=== PATIENT | male | born 1995 | race Two or more races ===

== ENCOUNTER 2019-01-11 23:28 | Inpatient (IN) | payer MEDICAID, OTHER ==
[~2019-01-11] VITALS: Ht 165.1 cm; Wt 166.9 kg
--- NOTE | 2019-01-11 23:46 | NUR ---
ED Nurse Note: Patient BIBA, post ictal, unresponsive, eyes open, body twitching, breathing labored, O2 saturation at 65%. Patient placed on nonrebreather immediately upon arrival 15L, 100%. Patient O2 saturation responded alternating between 88-90, dropping as low as 83%. ERMd informed.
[2019-01-12] VITALS (8 sets, daily range): BP systolic 106–169; BP diastolic 52–110
[2019-01-12] MEDS ORDERED: levETIRAcetam 1,000mg/NS100ml 100 ML IVPB ONE
[2019-01-12] MEDS ORDERED: LORazepam Inj 2mg/ml 1ml IM ONE
[2019-01-12] MEDS ORDERED: LORazepam Inj 2mg/ml 1ml IV ONE ×2 (00:15→01:30)
[2019-01-12 00:19] LABS: BASOPHILS % (AUTO) 1.1 % (0.0-2.0); EOSINOPHILS % (AUTO) 1.2 % (0.0-3.0); HEMATOCRIT 48.2 % (42.0-52.0); HEMOGLOBIN 15.2 G/DL (14.2-18.0); LYMPHOCYTES % (AUTO) 29.8 % (20.0-45.0); MEAN CORPUSCULAR VOLUME 94 FL (80-99); MONOCYTES % (AUTO) 8.6 % (1.0-10.0); NEUTROPHILS % (AUTO) 59.3 % (45.0-75.0); PLATELET COUNT 187 K/UL (150-450); RED BLOOD COUNT 5.11 M/UL (4.70-6.10); RED CELL DISTRIBUTION WIDTH 12.6 % (11.6-14.8); WHITE BLOOD COUNT 10.4 K/UL (4.8-10.8)
--- NOTE | 2019-01-12 00:30 | NUR ---
ED Nurse Note: Patient being placed on BiPAP. Settings: 04/07 100%.
[2019-01-12 00:41] LABS: ANION GAP 5 mmol/L (5-15); BLOOD UREA NITROGEN 14 mg/dL (7-18); CALCIUM 8.7 MG/DL (8.5-10.1); CARBON DIOXIDE 29 MMOL/L (21-32); CHLORIDE 110 MMOL/L (98-107); CREATININE 0.8 MG/DL (0.55-1.30); POTASSIUM 4.5 MMOL/L (3.5-5.1); SODIUM 144 MMOL/L (136-145)
--- NOTE | 2019-01-12 00:47 | Emergency Room Report ---
History of Present Illness General Chief Complaint: Seizure Source: Medical Record, EMS Present Illness HPI Patient presents with seizure. He has a history of seizure disorder for which he takes Keppra. Also question of pseudoseizure. He called 911 because of seizure activity. He lives by himself. EMS did not give any medication. On arrival he was confused and was twitching on the left side. No trauma. No obvious oral trauma. He was also grunting. He was in and out in these episodes. Allergies: Coded Allergies: No Known Allergies (Unverified , 01/11/19) Patient History Past Medical History: see triage record, old chart reviewed, seizures Past Surgical History: other Pertinent Family History: none Social History: Denies: smoking Immunizations: other Reviewed Nursing Documentation: PMH: Agreed; PSxH: Agreed Nursing Documentation-PMH Hx Seizures: Yes Review of Systems Eye: Denies: eye pain, blurred vision ENT: Denies: ear pain, nose congestion, throat swelling Respiratory: Denies: cough, shortness of breath Cardiovascular: Denies: chest pain, palpitations Gastrointestinal: Denies: abdominal pain, diarrhea, nausea, vomiting Musculoskeletal: Denies: back pain, joint pain Skin: Denies: rash Neurological: Denies: headache, numbness Endocrine: Denies: increased thirst, increased urine Hematologic/Lymphatic: Denies: easy bruising All Other Systems: negative except mentioned in HPI Physical Exam Vital Signs Date Time Temp Pulse Resp B/P (MAP) Pulse Ox O2 Delivery O2 Flow Rate FiO2 01/11/19 23:39 98.4 110 16 150/110 (123) 96 Room Air 01/12/19 00:45 100 Vitals with high blood pressure and tachycardia Sp02 EP Interpretation: reviewed, normal General Appearance: well appearing, no apparent distress, obese, other - Post ictal Head: normocephalic, atraumatic Eyes: bilateral eye PERRL, bilateral eye EOMI ENT: hearing grossly normal, normal pharynx Neck: full range of motion, supple, no meningismus Respiratory: chest non-tender, lungs clear, normal breath sounds Cardiovascular #1: regular rate, rhythm, no murmur Gastrointestinal: normal bowel sounds, non tender, no mass, no organomegaly, no bruit, non-distended Musculoskeletal: back normal, gait/station normal, normal range of motion Psychiatric: mood/affect normal Procedures Critical Care Time Critical Care Time Critical care is mandated in this patient who presented with status epilepticus. Patient require my urgent intervention to attenuate the risks of metabolic collapse which may lead to cardiovascular collapse and . Critical care time is 35 minutes excluding any reportable procedure. Critical care time included evaluation, multiple reevaluation, looking at old charts, interpreting laboratory and diagnostic data, discussing case with patient and family and consultants, and charting. Medical Decision Making Diagnostic Impression: Primary Impression: Epileptic seizure, generalized Additional Impressions: Status epilepticus Respiratory failure with hypoxia Qualified Codes: J96.01 - Acute respiratory failure with hypoxia Morbid obesity with BMI of 60.0-69.9, adult ER Course Patient presents with a seizure. Per EMS he was talking to them. Here he is not responsive. There is probably postictal. He has several small seizure here. I gave him Keppra and Ativan here. He became hypoxic and not breathing well. Is probably to the Ativan and the seizure and postictal state. I placed on BiPAP. This improve his respiratory status. He was also very tachycardic. There is no evidence of any infection. No evidence of any pneumonia. CT head was negative for any bleed. Tachycardia improved after IV fluid. Will admit for further work-up. Contacted Dr. Mckeon for admission. Lab Results Impression Unremarkable EKG Diagnostic Results Rate: tachycardiac Rhythm: NSR ST Segments: no acute changes Rhythm Strip Diag. Results EP Interpretation: yes Rate: 110 Rhythm: NSR, no PVC's, no ectopy Chest X-Ray Diagnostic Results Chest X-Ray Diagnostic Results : Chest X-Ray Ordered: Yes # of Views/Limited/Complete: 1 View Indication: Shortness of Breath EP Interpretation: Yes Interpretation: no consolidation, no effusion, no pneumothorax, no acute cardiopulmonary disease Impression: No acute disease Electronically Signed by: Eliud Mills MD CT/MRI/US Diagnostic Results CT/MRI/US Diagnostic Results : Imaging Test Ordered: CT head Impression Negative per radiologist Last Vital Signs Date Time Temp Pulse Resp B/P (MAP) Pulse Ox O2 Delivery O2 Flow Rate FiO2 01/12/19 00:45 136 14 97 Bi-Pap 100 01/12/19 00:22 98.4 150/110 Status: improved Disposition: ADMITTED INPATIENT Condition: Serious Eliud Mills MD Jan 12, 2019 00:47
--- NOTE | 2019-01-12 01:03 | NUR ---
ED Nurse Note: Patient O2 saturation responding well to Bipap, Patient remains tachycardic as high as 150. ERMD informed.
[2019-01-12 01:04] LABS: APPEARANCE,URINE CLEAR; BILIRUBIN, URINE NEGATIVE (NEGATIVE); GLUCOSE, URINE (UA) NEGATIVE (NEGATIVE); KETONES,URINE NEGATIVE (NEGATIVE); LEUKOCYTE ESTERASE ,URINE NEGATIVE (NEGATIVE); NITRITE,URINE NEGATIVE (NEGATIVE); PH,URINE 6 (4.5-8.0); PROTEIN,URINE 2+ (NEGATIVE); UROBILINOGEN,URINE 1 MG/DL (0.0-1.0)
--- NOTE | 2019-01-12 01:06 | NUR ---
ED Nurse Note: Patient unresponsive to painful stimuli. ERMD aware.
[2019-01-12 01:07] LABS: COLOR,URINE YELLOW
[2019-01-12] MEDS ORDERED: dilTIAZem HCl 25mg/5ml Inj IVP ONE (01:15)
--- NOTE | 2019-01-12 02:32 | NUR ---
ED Nurse Note: Bed assigned, ERMD awaiting CT results.
--- NOTE | 2019-01-12 03:25 | NUR ---
ED Nurse Note: Patient cleared for transport to the floor by PAULA. Report given to Lexi prior to departure. Patient accompanied to floor by multiple RN's and [facility]. Patient departed with all belongings.
--- NOTE | 2019-01-12 03:35 | NUR ---
NURSE NOTES: BEDSIDE REPORT RECEIVED FROM GLO COSTA. PT IS VERY LETHARGIC, RESPONDS TO DEEP PAIN. SSIS ETL DEVELOPER SHOWING ST, EKG CAME BACK NORMAL. CURRENTLY ON BIPAP 15/5 @ 100%. SKIN IS CLEAN, DRY, INTACT. IV SITE L/R 20 G, ASYMPTOMATIC. NO ORDERS AT THIS TIME, WILL CONTACT DR. ROWE. BED IS LOCKED IN LOWEST POSITION, SR X3, CALL ROOT W/ IN REACH, SZ PRECAUTIONS CONTINUED. WILL CONTINUE AND FOLLOW W/ PLAN OF CARE.
--- NOTE | 2019-01-12 03:59 | NUR ---
NURSE NOTES: PAGED DR. ROWE REGARDING ADMIT ORDERS. LEFT A MESSAGE AT [phone]. AWAITING A CALL BACK, PT IS CURRENTLY STABLE AT THIS TIME. WILL CONTINUE TO MONITOR AND FOLLOW W/ PLAN OF CARE.
--- NOTE | 2019-01-12 05:29 | NUR ---
NURSE NOTES: PAGED DR. ROWE, NO ANSWER, LEFT A MESSAGE. AWAITING A CALL BACK. WILL CONTINUE TO MONITOR.
--- NOTE | 2019-01-12 07:21 | NUR ---
HAND-OFF: Report given to GLO RESENDIZ.
--- NOTE | 2019-01-12 07:24 | NUR ---
NURSE NOTES: Received report from GLO Elliott. Patient is resting in bed, in stable condition. No s/sx of SOB, breathing is even and unlabored, noted on BiPAP on prescribed settings; SpO2 100%. Bed is in lowest position, brakes engaged. Call light is kept within easy reach. Will continue to monitor patient.
--- NOTE | 2019-01-12 10:05 | NUR ---
CASE MANAGEMENT: INITIAL REVIEW 23 YO M OLIVIER FROM HOME CC: UNWITNESSED LOKESH PMHx: SZ SI:SZ. T 98.4 HR 110 RR 16 B/P 150/110 SATS 96% ON RA CL 110 GLU 147 ABGs PH 7.274 PCO2 54.8 PO2 100.3 BE -2.8 IS: KEPPRA IV X1 ATIVAN IM X1 ATIVAN IV X1 NS BOLUS X1 CARDIZEM IV X1 PATIENT ADMITTED TO SDU 01/12/2019 @ 0207 DCP: PATIENT TO BE DISCHARGED TO HOME ONCE MEDICALLY CLEARED. PLAN OF CARE: CXR NEURO CHECKS Addendum: 01/12/19 at 1351 by Leonor Mathew INTERQUAL MET
--- NOTE | 2019-01-12 10:37 | Diagnostic Imaging Report ---
Indication: Headache Technique: Contiguous 5 mm thick transaxial imaging of the head obtained in a Siemens Sensation [address] scanner. Soft tissue and bone windows generated. Automatic Exposure Control was utilized. Total Dose length Product (DLP): 1604.[address] Dose Index Volume (CTDIvol): 70.38 mGy Comparison: none Findings: The size and configuration of the cortical sulci, basal cisterns, and ventricles are within normal limits for age. There is no mass effect, midline shift, or edema identified. There is no evidence of acute hemorrhage or abnormal intra-axial or extra-axial fluid collections. The bones and soft tissues are unremarkable. Impression: No mass effect, edema or acute bleed. Note: The study is markedly degraded by artifacts. [facility] has communicated the preliminary results to the Emergency Department. Their findings are largely concordant with this report. The CT scanner at [facility] is accredited by the [employer] and the scans are performed using dose optimization techniques as appropriate to a performed exam including Automatic Exposure control.
--- NOTE | 2019-01-12 10:53 | NUR ---
NURSE NOTES: Dr. Humphries seen and examined patient. Informed of AM ABG levels of pH 7.274, pCO2 54.8, pO2 100.3, HCO3 24.8, and Bipap setting of 15/[address] Humphries acknowledged and ordered BiPAP as PRN for shortness of breath. Order entered, noted, and carried out. Will continue to monitor patient.
--- NOTE | 2019-01-12 11:02 | Consultation ---
History of Present Illness General Date patient seen: Jan 12, 2019 Chief Complaint: Seizure Present Illness HPI 23 year old male with hx of morbid obesity, Seizure, psychosis, presented to ER by paramedics with cc of seizure. He called 911 because of seizure activity. He lives by himself. EMS did not give any medication. On arrival to ER, he was confused and was twitching on the left side. He was also grunting. He was in and out in these episodes. He was also desaturating and was put on BIPAP and transferred to [facility]. Currently pt is awake, looks comfortable and eating his breakfast. Allergies: Coded Allergies: No Known Allergies (Unverified , 01/11/19) Patient History Healthcare decision maker SPENCERWSekou Resuscitation status Full Code Advanced Directive on File No Past Medical/Surgical History Past Medical/Surgical History: (1) Morbid obesity with BMI of 60.0-69.9, adult (2) Epileptic seizure, generalized Review of Systems All Other Systems: negative except mentioned in HPI Physical Exam General Appearance: WD/WN, alert Lines, tubes and drains: peripheral HEENT: normocephalic, anicteric Neck: non-tender, supple Respiratory/Chest: chest wall non-tender, lungs clear Cardiovascular/Chest: normal peripheral pulses, normal rate Abdomen: normal bowel sounds Genitourinary/Rectal: normal genital exam Extremities: normal range of motion Last 24 Hour Vital Signs Date Time Temp Pulse Resp B/P (MAP) Pulse Ox O2 Delivery O2 Flow Rate FiO2 01/12/19 09:00 109 22 100 Facial 50 01/12/19 09:00 Bi-pap 01/12/19 08:00 98.4 98 24 108/57 (74) 100 01/12/19 08:00 100 01/12/19 07:12 111 23 100 Facial 50 01/12/19 05:06 109 23 98 Facial 50 01/12/19 04:04 Bi-pap 01/12/19 04:00 117 01/12/19 04:00 100 01/12/19 04:00 Bi-pap 01/12/19 03:51 97.9 119 24 106/73 (84) 100 01/12/19 03:50 118 19 99 Facial 100 01/12/19 03:25 99.1 122 22 136/63 100 Bi-pap 100 01/12/19 02:54 99.1 122 22 136/63 100 Bi-pap 100 01/12/19 01:13 150 141/56 01/12/19 00:51 99.1 134 19 169/81 95 Bi-pap 100 01/12/19 00:46 136 14 97 Facial 100 01/12/19 00:45 136 14 97 Bi-Pap 100 01/12/19 00:22 98.4 116 16 150/110 96 Room Air 01/12/19 00:22 110 16 Room Air 01/11/19 23:39 98.4 110 16 150/110 (123) 96 Room Air Intake and Output 01/11/19 01/12/19 19:00 07:00 Intake Total 0 ml Output Total 0 ml Balance 0 ml Intake Oral 0 ml Output Urine Total 0 ml Laboratory Tests Test 01/12/19 00:00 01/12/19 00:47 01/12/19 08:50 White Blood Count 10.4 K/UL (4.8-10.8) Red Blood Count 5.11 M/UL (4.70-6.10) Hemoglobin 15.2 G/DL (14.2-18.0) Hematocrit 48.2 % (42.0-52.0) Mean Corpuscular Volume 94 FL (80-99) Mean Corpuscular Hemoglobin 29.7 PG (27.0-31.0) Mean Corpuscular Hemoglobin Concent 31.6 G/DL (32.0-36.0) L Red Cell Distribution Width 12.6 % (11.6-14.8) Platelet Count 187 K/UL (150-450) Mean Platelet Volume 7.6 FL (6.5-10.1) Neutrophils (%) (Auto) 59.3 % (45.0-75.0) Lymphocytes (%) (Auto) 29.8 % (20.0-45.0) Monocytes (%) (Auto) 8.6 % (1.0-10.0) Eosinophils (%) (Auto) 1.2 % (0.0-3.0) Basophils (%) (Auto) 1.1 % (0.0-2.0) Sodium Level 144 MMOL/L (136-145) Potassium Level 4.5 MMOL/L (3.5-5.1) Chloride Level 110 MMOL/L (98-107) H Carbon Dioxide Level 29 MMOL/L (21-32) Anion Gap 5 mmol/L (5-15) Blood Urea Nitrogen 14 mg/dL (7-18) Creatinine 0.8 MG/DL (0.55-1.30) Estimat Glomerular Filtration Rate > 60 mL/min (>60) Glucose Level 147 MG/DL (74-106) H Calcium Level 8.7 MG/DL (8.5-10.1) Serum Alcohol < 3 mg/dL Urine Color Yellow Urine Appearance Clear Urine pH 6 (4.5-8.0) Urine Specific [place] 1.025 (1.005-1.035) Urine Protein 2+ (NEGATIVE) H Urine Glucose (UA) Negative (NEGATIVE) Urine Ketones Negative (NEGATIVE) Urine Blood 2+ (NEGATIVE) H Urine Nitrite Negative (NEGATIVE) Urine Bilirubin Negative (NEGATIVE) Urine Urobilinogen 1 MG/DL (0.0-1.0) H Urine Leukocyte Esterase Negative (NEGATIVE) Urine RBC 10-15 /HPF (0 - 0) H Urine WBC 0-2 /HPF (0 - 0) Urine Squamous Epithelial Cells None /LPF (NONE/OCC) Urine Bacteria Few /HPF (NONE) Urine Opiates Screen Negative (NEGATIVE) Urine Barbiturates Screen Negative (NEGATIVE) Phencyclidine (PCP) Screen Negative (NEGATIVE) Urine Amphetamines Screen Negative (NEGATIVE) Urine Benzodiazepines Screen Negative (NEGATIVE) Urine Cocaine Screen Negative (NEGATIVE) Urine Marijuana (THC) Screen Negative (NEGATIVE) Arterial Blood pH 7.274 (7.350-7.450) Arterial Blood Partial Pressure CO2 54.8 mmHg (35.0-45.0) H Arterial Blood Partial Pressure O2 100.3 mmHg (75.0-100.0) H Arterial Blood HCO3 24.8 mmol/L (22.0-26.0) Arterial Blood Oxygen Saturation 97.1 % (95-100) Arterial Blood Base Excess -2.8 (-2-2) L Dom Test Positive Height (Feet): 5 Height (Inches): 5.00 Weight (Pounds): 368 Medications Current Medications Medications (Trade) Dose Ordered Sig/Dulce Route PRN Reason Start Time Stop Time Status Last Admin Dose Admin Acetaminophen (Tylenol) 650 mg Q6H PRN ORAL Mild Pain/Temp > 100.5 01/12/19 08:30 02/11/19 08:29 Acetaminophen/ Hydrocodone Bitart (Blunt 5/325) 1 tab Q6H PRN ORAL Severe Pain (Pain Scale 7-10) 01/12/19 08:30 01/19/19 08:29 Levetiracetam 100 ml @ 400 mls/hr Q12HR IVPB 01/12/19 12:00 02/11/19 11:59 Lorazepam (Ativan 2mg/ml 1ml) 1 mg Q2H PRN IV For Seizures 01/12/19 08:30 01/19/19 08:29 Ondansetron HCl (Zofran) 4 mg Q4H PRN IVP Nausea & Vomiting 01/12/19 08:30 02/11/19 08:29 Piperacillin Sod/ Tazobactam Sod 3.375 gm/Sodium Chloride 110 ml @ 27.5 mls/hr Q8HR IVPB 01/12/19 14:00 01/19/19 13:59 Assessment/Plan Problem List: (1) Status epilepticus ICD Codes: G40.901 - Epilepsy, unspecified, not intractable, with status epilepticus; Z68.44 - Body mass index (BMI) 60.0-69.9, adult SNOMED: 471098830, 570153934, 33879367742347 (2) Acute respiratory failure ICD Codes: J96.00 - Acute respiratory failure, unspecified whether with hypoxia or hypercapnia SNOMED: 65482585 (3) Morbid obesity with BMI of 60.0-69.9, adult ICD Codes: E66.01 - Morbid (severe) obesity due to excess calories; Z68.44 - Body mass index (BMI) 60.0-69.9, adult SNOMED: 658451025, 624276183, 83175970467536 (4) Obstructive sleep apnea ICD Codes: G47.33 - Obstructive sleep apnea (adult) (pediatric) SNOMED: 61690374 Assessment/Plan: resume Keppra get Keppra level might need more antiseizure meds get Echo to assess for heart failure, Get CXR and BNP Neuro evaluation. Jaret Humphries MD Jan 12, 2019 11:02
--- NOTE | 2019-01-12 11:54 | NUR ---
CHEST X-RAY COMPLETED AT 1150 HRS BY Jonathan BLAS
[2019-01-12] MEDS ORDERED: levETIRAcetam 1,000mg/NS100ml 100 ML IVPB SCH (12:00)
--- NOTE | 2019-01-12 12:02 | Diagnostic Imaging Report ---
Indication: Dyspnea Comparison: None A single view chest radiograph was obtained. Findings: Lung volumes are low but the there is evidence of pulmonary vascular congestion with prominent cephalized pulmonary vessels. Heart is a prominent. IMPRESSION: Suspected pulmonary vascular congestion
--- NOTE | 2019-01-12 12:16 | Diagnostic Imaging Report ---
Indication: Dyspnea Comparison: 01/12/2019 A single view chest radiograph was obtained. Findings: Pulmonary vascular congestion demonstrated with cardiomegaly. No significant change appreciated. IMPRESSION: Pulmonary vascular congestion
[2019-01-12] MEDS: HYDROcodone/Acetamin 5/325 tab ORAL PRN ×2 (12:34→20:19)
[2019-01-12] MEDS ORDERED: Piperacillin/Tazobactam 3.375 GM in NS 110 ML IVPB SCH (14:00)
--- NOTE | 2019-01-12 14:53 | NUR ---
Social Service Note CONNER spoke with Brendon Coronel [phone] service provider for [employer]. Patient lives at [facility] [address], [address]. Brendon provided patient's Med-keyonna #[id number]. Jj states patient has received follow up care at [facility] however his insurance is contracted with [facility] [phone]. Jj was unable to locate next of kin. Brendon also provided contact Chika [phone] [facility] to review lease for possible field contact technician. Chika voice mail full and unable to leave a message. Message left for medical records at [facility] [phone] and outpatient clinic at [facility] [phone]. CONNER contact [facility] and patient has not been seen at this clinic as yet. Brendon is unaware of patient's medication compliancy. Will continue to monitor and assist as needed.
--- NOTE | 2019-01-12 15:23 | History & Physical ---
History and Physical History & Physicial [phone] Sathya Mckeon MD Jan 12, 2019 15:23
--- NOTE | 2019-01-12 15:27 | Cardiology Report ---
APPROVED REPORT EXAM: Two-dimensional and M-mode echocardiogram with Doppler and color Doppler. INDICATION Left ventricular function M-Mode DIMENSIONS IVSd1.1 (0.7-1.1cm)Left Atrium (MM)3.9 (1.6-4.0cm) LVDd4.8 (3.5-5.6cm)Aortic Root2.7 (2.0-3.7cm) PWd1.1 (0.7-1.1cm)Aortic Cusp Exc.2.0 (1.5-2.0cm) LVDs3.2 (2.5-4.0cm) PWs1.2 cm Normal left ventricular chamber size, systolic function and wall motion. Left ventricular ejection fraction estimated to be 60 %. Borderline left ventricular hypertrophy. No evidence of pericardial effusion. All other cardiac chamber sizes are within normal limits. Normal appearing aortic, mitral, and tricuspid valves. Mitral annulus and aortic root calcification. Pulmonic valve not well visualized. IVC is normal in size with physiological collapse. A color flow and spectral Doppler study was performed and revealed: No aortic regurgitation. Trace mitral regurgitation. Normal left ventricular diastolic function. Trace tricuspid regurgitation. Tricuspid systolic velocities suggests peak right ventricular systolic pressure of 36 mmHg, consistent with mild pulmonary hypertension. No pulmonic regurgitation present.
--- NOTE | 2019-01-12 15:31 | Consultation ---
Consult Note Consult Note NEUROLOGY CONSULTATION: Full note dictated #[id number] 23-year-old, right-handed, with past history of autism spectrum disorder, seizure disorder since he was in his late teens, who was hospitalized for breakthrough seizures. On examination: Mild problems with memory Globally diminished deep tendon reflexes IMPRESSION: Breakthrough seizures in a patient with prior history of seizures possibly due to subtherapeutic dose of anticonvulsant. Seizure type most prominently focal with secondary generalization. RECOMMENDATIONS: Increase Keppra to 2.5 g every 12 hours EEG to better than the type of seizure disorder. Confirm with mother that he has had an MRI of the brain in the past. Tarun Spann M.D., M.S.P.H. Tarun Spann MD Jan 12, 2019 15:31
--- NOTE | 2019-01-12 15:50 | Cardiology Report ---
APPROVED REPORT EKG Measurement Heart [id number] Sinus tachycardia Nonspecific T wave abnormality Abnormal ECG
--- NOTE | 2019-01-12 16:00 | NUR ---
NURSE NOTES: Patient noted with EEG order per Dr. Spann. Called and left message with Dillon. Noted.
--- NOTE | 2019-01-12 18:30 | NUR ---
NURSE NOTES: Patient states, taking these medications at home: 1) Resperdal 4 mg PO QHS, 2) Depakote 500 mg PO BID, and 3) Topamax 200 mg PO BID. Notified and informed Dr. Mckeon mediations. Dr. Mckeon continued medications for hospital stay. Orders entered, noted, and carried out. Will continue to monitor patient.
--- NOTE | 2019-01-12 18:45 | Consultation ---
DATE OF CONSULTATION: 01/12/2019 NEUROLOGY CONSULTATION CONSULTING PHYSICIAN: Tarun Spann M.D. REFERRING PHYSICIAN: Sathya Mckeon M.D. HISTORY: Mr. Eduardo Haley is a 23-year-old, right-handed, gentleman with a past history of autism spectrum disorder, and a seizure disorder since he was in his late teens who was hospitalized for breakthrough seizures. As per the patient, he started having seizures when he was in his late teens. When he usually has a seizure, he has some lip-smacking movements followed by loss of consciousness followed by abnormal body jerking, which has been described to be either on one side or the other or sometimes on both. He himself only remembers the lip-smacking and passing out. Over the years, he has had multiple seizures. His last seizure was approximately 4 months ago and then he was told that he had a few seizures when he was admitted this time. At this point in time, he denies any weakness on one side or the other, numbness on one side or the other, problems with speech, problems with language, problems with memory, or other neurological problems. PAST MEDICAL HISTORY: Significant for autism spectrum disorder and seizure disorder. FAMILY HISTORY: Nothing significant as per the patient. He denies any family history of seizures. PERSONAL HISTORY: Home: He lives alone. Work: He has never worked. Habits: He denies the use of alcohol, tobacco, or illicit drugs at this point in time, but in the past has had something to drink and smoke. PRESENT MEDICATIONS: Include Abilify 10 mg daily, Keppra 1.5 g q.12 hours, Zofran p.r.n., Tylenol p.r.n., [place] p.r.n., lorazepam p.r.n. PHYSICAL EXAMINATION: GENERAL: He is a well-developed, well-nourished, obese, gentleman, in no acute distress. VITAL SIGNS: Pulse 94/minute, blood pressure 112/52 mmHg, respirations 24/minute, temperature 98.1 degrees Fahrenheit. HEAD: Normocephalic and atraumatic. EENT: Examination benign. NECK: No neck rigidity was observed. NEUROLOGICAL EXAMINATION: MENTAL STATUS EXAMINATION: He was awake and alert. He was oriented to person, place, and time. He was able to recall 3/3 words immediately after 1 minute and after 3 minutes on the second trial. He was able to remember Presidents, Trump and Obama, but could not remember Presidents prior to that. His mathematical skills were fairly good. His visuospatial function was preserved. SPEECH: He had no dysarthria. LANGUAGE: He had no aphasia. CRANIAL NERVE EXAMINATION: II: The visual ryder were intact on confrontation testing. III, IV & : The external ocular movements were full and the pupils 3 mm in diameter, equal, round, regular, and reactive to light. V: He had normal facial sensations, and the temporales, masseters, and pterygoids functioned normally. VII: He had normal facial expressions and no facial asymmetry. VIII: He was able to hear well bilaterally and had no nystagmus. IX: The palate moved symmetrically on phonation. X: He had no hoarseness of voice. XI: The sternocleidomastoids and trapezii functioned normally. XII: The tongue was in the midline without any fasciculations or atrophy MOTOR SYSTEM: The tone was normal in all four extremities. Examination of muscle mass revealed no focal wasting. Examination of power revealed G 5/5 power in all muscle groups. SENSORY EXAMINATION: He had intact sensations to pinprick, light touch, and graphesthesia. COORDINATION: He performed well on [id number] testing. REFLEXES: Trace+ and bilaterally symmetrical at the biceps, triceps, brachioradialis, and knees, 0 at both ankles. The plantar responses were flexor bilaterally. STANCE: He stood up independently. GAIT: He walked well independently. DIAGNOSTIC IMPRESSION: 1. Mr. Eduardo Haley is a 23-year-old, right-handed, gentleman, with past history of autism spectrum disorder and a seizure disorder who was hospitalized for breakthrough seizures. 2. On neurological examination, at this time, he does have mild problems with recent and remote memory, and globally diminished deep tendon reflexes. 3. CT scan of the brain without contrast is benign. 4. By report, the patient has had an MRI scan of the brain performed in the past, which was reportedly benign. 5. The patient says that he has had EEGs; however, he cannot remember what the EEG showed. 6. His latest laboratory data revealed a relatively normal CBC. The ABG revealed a pH of 7.27, pCO2 of 54.8, pO2 of 100.3. The chemistry panel revealed a glucose elevated at 147. The Hemoglobin A1c was at 5.8. The urine toxicology screen that was negative and urinalysis that revealed 10-15 red blood cells and 0-2 white blood cells per high-power field. 7. 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 The most likely etiology for the breakthrough seizures is that the patient is not on an adequate dose of antiseizure medicine to control the seizures as he does weigh 166 kilos. RECOMMENDATIONS: 1. The patient was given an explanation of the above- mentioned findings. 2. His dose of Keppra will be increased to 2.5 G q.12 hours. 3. An EEG should be performed to better delineate the type of seizure disorder. 4. Attempt should be made to confirm with his mother that he did have an MRI of the brain in the past and the MRI was in fact normal. If not, then a repeat MRI should be performed in the near future. Thank you for entrusting me with the care of Mr. Haley. I shall follow him with you. Tarun Spann M.D., M.S.P.H. : YANET JOB#: [id number]
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
--- NOTE | 2019-01-12 19:25 | NUR ---
HAND-OFF: Report given to GLO Mora.
[2019-01-12] MEDS: Topiramate 100mg tab ORAL SCH (20:17)
[2019-01-12] MEDS: Depakote 500mg tab ORAL SCH (20:18)
--- NOTE | 2019-01-12 22:00 | NUR ---
NURSE NOTES: EEG was performed. per preliminary report, no abnormal finding
[2019-01-12] MEDS: LORazepam Inj 2mg/ml 1ml IV PRN (22:12)
--- NOTE | 2019-01-12 22:18 | NUR ---
NURSE NOTES: Patient vomited, when giving zofran IV, patient started taking his gown off and got out of the bed. Started masterbating stating " i want to cum on your face" "do me" and other inappropriate comments. unable to redirect patient. security was called. security then talked to the patient and brought the patient back to bed.
--- NOTE | 2019-01-12 22:21 | NUR ---
NURSE NOTES: PRN ativan IV was administered, security by bedside
--- NOTE | 2019-01-12 22:29 | NUR ---
NURSE NOTES: Patient currently calm in bed. appears to be sleeping.
--- NOTE | 2019-01-12 23:08 | NUR ---
NURSE NOTES: Patient got out of the bed and got naked and started touching his penis. Patient was making inappropriate remarks to staff. telling staff " Herminio me off" "suck my shraddha" Called security and patient was then brought back to his room. Dr Mckeon made aware of the situation.
[2019-01-13] VITALS: BP 130/69
--- NOTE | 2019-01-13 | NUR ---
NURSE NOTES: Currently there is a sitter at bedside. Will continue to monitor.
[2019-01-13] MEDS: LORazepam Inj 2mg/ml 1ml IV PRN (00:08)
[2019-01-13 04:00] VITALS: BP 102/57
--- NOTE | 2019-01-13 06:20 | Pulmonology Progress Note ---
Assessment/Plan Problems: (1) Status epilepticus (2) Acute exacerbation of psychosis (3) Acute respiratory failure (4) Morbid obesity with BMI of 60.0-69.9, adult (5) Obstructive sleep apnea (6) Psychosis Assessment/Plan Keppra was increased to 2.5 gm BID pt has a sitter now because of bizarre behavior last night, aggression against nurses, masturbation in the hallway. Subjective ROS Limited/Unobtainable: No Constitutional: Reports: no symptoms HEENT: Repors: no symptoms Respiratory: Reports: no symptoms Allergies: Coded Allergies: No Known Allergies (Unverified , 01/11/19) Objective Last 24 Hour Vital Signs Date Time Temp Pulse Resp B/P (MAP) Pulse Ox O2 Delivery O2 Flow Rate FiO2 01/13/19 04:00 Nasal Cannula 2.0 01/13/19 04:00 2.0 01/13/19 04:00 98.0 93 20 102/57 (72) 97 01/13/19 03:37 94 01/13/19 00:00 98.7 90 20 130/69 (89) 96 01/13/19 00:00 Nasal Cannula 2.0 01/13/19 00:00 2.0 01/12/19 23:36 111 01/12/19 20:00 2.0 01/12/19 20:00 Nasal Cannula 2.0 01/12/19 20:00 98.9 103 19 124/99 (107) 97 01/12/19 19:38 103 01/12/19 16:00 2.0 01/12/19 16:00 Bi-pap 01/12/19 16:00 97.5 97 20 122/69 (86) 97 01/12/19 16:00 100 01/12/19 12:23 88 01/12/19 12:00 2.0 01/12/19 12:00 Bi-pap 01/12/19 12:00 98.1 94 24 112/52 (72) 97 01/12/19 09:00 109 22 100 Facial 50 01/12/19 09:00 Bi-pap 01/12/19 08:00 98.4 98 24 108/57 (74) 100 01/12/19 08:00 100 01/12/19 07:50 97 01/12/19 07:12 111 23 100 Facial 50 Intake and Output 01/12/19 01/13/19 19:00 07:00 Intake Total 500 ml Output Total 1500 ml 900 ml Balance -1500 ml -400 ml Intake Oral 500 ml Output Urine Total 1500 ml 900 ml # Voids 2 General Appearance: WD/WN HEENT: normocephalic, atraumatic Respiratory/Chest: chest wall non-tender, normal breath sounds Cardiovascular: normal peripheral pulses, normal rate Abdomen: normal bowel sounds Genitourinary: normal external genitalia Skin: no rash Laboratory Tests 01/12/19 08:50: Arterial Blood pH 7.274L, Arterial Blood Partial Pressure CO2 54.8H, Arterial Blood Partial Pressure O2 100.3H, Arterial Blood HCO3 24.8, Arterial Blood Oxygen Saturation 97.1, Arterial Blood Base Excess -2.8L, Dom Test Positive 01/12/19 11:50: Hemoglobin A1c 5.8, Pro-B-Type Natriuretic Peptide 209H, Vitamin B12 Level 504, Vitamin D 25-Hydroxy [Pending], 25-Hydroxy Vitamin D2 [Pending], 25-Hydroxy Vitamin D3 [Pending], Folate 11.3, Thyroid Stimulating Hormone (TSH) 0.293L, Levetiracetam (Keppra) Level [Pending], Rapid Plasma Reagin Non reactive 01/13/19 05:34: White Blood Count [Pending], Red Blood Count [Pending], Hemoglobin [Pending], Hematocrit [Pending], Mean Corpuscular Volume [Pending], Mean Corpuscular Hemoglobin [Pending], Mean Corpuscular Hemoglobin Concent [Pending], Red Cell Distribution Width [Pending], Platelet Count [Pending], Mean Platelet Volume [ Pending], Neutrophils (%) (Auto) [Pending], Lymphocytes (%) (Auto) [Pending], Monocytes (%) (Auto) [Pending], Eosinophils (%) (Auto) [Pending], Basophils (%) (Auto) [Pending], Erythrocyte Sedimentation Rate [Pending], Sodium Level [ Pending], Potassium Level [Pending], Chloride Level [Pending], Carbon Dioxide Level [Pending], Blood Urea Nitrogen [Pending], Creatinine [Pending], Estimat Glomerular Filtration Rate [Pending], Glucose Level [Pending], Calcium Level [ Pending], Phosphorus Level [Pending], Magnesium Level [Pending], Total Bilirubin [Pending], Aspartate Amino Transf (AST/SGOT) [Pending], Alanine Aminotransferase (ALT/SGPT) [Pending], Alkaline Phosphatase [Pending], C- Reactive Protein, Quantitative [Pending], Total Protein [Pending], Albumin [ Pending], Globulin [Pending], Valproic Acid (Depakene) Level [Pending] Current Medications Medications (Trade) Dose Ordered Sig/Dulce Route PRN Reason Start Time Stop Time Status Last Admin Dose Admin Acetaminophen (Tylenol) 650 mg Q6H PRN ORAL Mild Pain/Temp > 100.5 01/12/19 08:30 02/11/19 08:29 Acetaminophen/ Hydrocodone Bitart ([place] 5/325) 1 tab Q6H PRN ORAL Severe Pain (Pain Scale 7-10) 01/12/19 08:30 01/19/19 08:29 01/12/19 20:19 Aripiprazole (Abilify) 10 mg DAILY ORAL 01/13/19 09:00 02/12/19 08:59 Divalproex Sodium (Depakote) 500 mg EVERY 12 HOURS ORAL 01/12/19 21:00 02/11/19 20:59 01/12/19 20:18 Levetiracetam (Keppra) 2,500 mg Q12HR ORAL 01/12/19 21:00 02/11/19 20:59 01/12/19 20:17 Lorazepam (Ativan 2mg/ml 1ml) 1 mg Q2H PRN IV For Seizures 01/12/19 08:30 01/19/19 08:29 01/13/19 00:08 Ondansetron HCl (Zofran) 4 mg Q4H PRN IVP Nausea & Vomiting 01/12/19 08:30 02/11/19 08:29 01/12/19 22:03 Risperidone (RisperDAL) 4 mg QHS ORAL 01/12/19 21:00 02/11/19 20:59 01/12/19 20:18 Topiramate (Topamax) 200 mg EVERY 12 HOURS ORAL 01/12/19 21:00 02/11/19 20:59 01/12/19 20:17 Jaret Humphries MD Jan 13, 2019 06:20
[2019-01-13 06:30] LABS: ALANINE AMINOTRANSFERASE 70 U/L (12-78); ALBUMIN 3.8 G/DL (3.4-5.0); ALBUMIN/GLOBULIN RATIO 1.2 (1.0-2.7); ALKALINE PHOSPHATASE 107 U/L (46-116); ANION GAP 7 mmol/L (5-15); ASPARTATE AMINO TRANSFERASE 28 U/L (15-37); BILIRUBIN,TOTAL 0.3 MG/DL (0.2-1.0); BLOOD UREA NITROGEN 10 mg/dL (7-18); CARBON DIOXIDE 27 MMOL/L (21-32); CHLORIDE 107 MMOL/L (98-107); CREATININE 0.8 MG/DL (0.55-1.30); PHOSPHORUS 3.1 MG/DL (2.5-4.9); POTASSIUM 3.8 MMOL/L (3.5-5.1); SODIUM 141 MMOL/L (136-145)
--- NOTE | 2019-01-13 07:00 | NUR ---
HAND-OFF: Report given to GLO Mayorga.
--- NOTE | 2019-01-13 07:11 | NUR ---
NURSE NOTES: Report received from GLO Baron. Observed patient in bed, appears to be sleeping. Patient on room air at this time; no respiratory distress noted. Left hand and right hand IV 20g noted. Safety precautions in place, bed locked, alarmed, and in lowest position, side rails x3, and call light left within reach. Sitter at bedside at this time as ordered. Will continue with plan of care and monitor.
--- NOTE | 2019-01-13 07:11 | NUR ---
NURSE NOTES: Report received from GLO Baron. Observed patient in bed, appears to be sleeping. Patient on room air at this time; no respiratory distress noted. Left hand and right hand IV 20g noted. Safety precautions in place, bed locked, alarmed, and in lowest position, side rails x3, and call light left within reach. Sitter at bedside at this time as ordered. Dr Melgar aware of EKG and troponin results; no new orders at this time. Will continue to monitor. Addendum: 01/13/19 at 0720 by Tierra Blackmon RN EKG and troponin entered in wrong chart.
[2019-01-13 08:00] VITALS: BP 141/88
[2019-01-13 08:56] LABS: EOSINOPHILS % (AUTO) 0.2 % (0.0-3.0); HEMATOCRIT 50.2 % (42.0-52.0); HEMOGLOBIN 15.4 G/DL (14.2-18.0); LYMPHOCYTES % (AUTO) 21.7 % (20.0-45.0); MEAN CORPUSCULAR VOLUME 95 FL (80-99); MONOCYTES % (AUTO) 11.2 % (1.0-10.0); PLATELET COUNT 218 K/UL (150-450); RED BLOOD COUNT 5.27 M/UL (4.70-6.10); RED CELL DISTRIBUTION WIDTH 12.9 % (11.6-14.8); WHITE BLOOD COUNT 7.3 K/UL (4.8-10.8)
[2019-01-13] MEDS ORDERED: ARIPiprazole 10mg tab ORAL SCH (09:00)
--- NOTE | 2019-01-13 09:21 | NUR ---
RADIOLOGY DEPT, CHEST X-RAY DONE.-P.DYE
[2019-01-13] MEDS: Depakote 500mg tab ORAL SCH (09:43)
[2019-01-13] MEDS: Topiramate 100mg tab ORAL SCH (09:43)
[2019-01-13] MEDS ORDERED: Albuterol/Ipratropium 3ml neb HHN PRN (10:00)
--- NOTE | 2019-01-13 10:18 | NUR ---
NURSE NOTES: O2 2L via NC applied, saturating 93-95% at this time. Refused BiPAP at the moment.
--- NOTE | 2019-01-13 10:22 | NUR ---
NURSE NOTES: Spoke with patient's mother over the phone, Silvia Green. Informed about patient's condition. Patient is sleeping after eating breakfast at this time. Will continue to monitor.
[2019-01-13 12:00] VITALS: BP 124/60
--- NOTE | 2019-01-13 12:03 | Diagnostic Imaging Report ---
Indication: Dyspnea Comparison: 01/12/2019 A single view chest radiograph was obtained. Findings: Pulmonary vascular congestion demonstrated with low lung volumes and cardiomegaly. IMPRESSION: No significant change
--- NOTE | 2019-01-13 13:20 | NUR ---
NURSE NOTES: OK to discharge to home per Dr Mckeon. Spoke with patient's mother over the phone [facility], states she is looking for someone to slate picker her son.
--- NOTE | 2019-01-13 13:32 | Neurology Progress Note ---
Interim History Interim History Interim History Mr. Haley feels well today. He has had no further seizures. In the early hours of today he was masturbating outside his room. Dr. Mckeon talked him into stopping the unacceptable behavior. He denies any new neurologic symptoms. He tolerated the increased dose of Keppra well. He is eager to go home. Review of Systems Neuro Review of Systems Benign. Objective Physical Exam Last Vital Signs Date Time Temp Pulse Resp B/P (MAP) Pulse Ox O2 Delivery O2 Flow Rate FiO2 01/13/19 12:00 2.0 01/13/19 12:00 98.1 70 24 124/60 (81) 93 01/13/19 12:00 Nasal Cannula 01/12/19 09:00 50 Laboratory Tests Test 01/13/19 05:34 01/13/19 08:00 Sodium Level 141 MMOL/L (136-145) Potassium Level 3.8 MMOL/L (3.5-5.1) Chloride Level 107 MMOL/L (98-107) Carbon Dioxide Level 27 MMOL/L (21-32) Anion Gap 7 mmol/L (5-15) Blood Urea Nitrogen 10 mg/dL (7-18) Creatinine 0.8 MG/DL (0.55-1.30) Estimat Glomerular Filtration Rate > 60 mL/min (>60) Glucose Level 110 MG/DL (74-106) H Calcium Level 9.0 MG/DL (8.5-10.1) Phosphorus Level 3.1 MG/DL (2.5-4.9) Magnesium Level 1.9 MG/DL (1.8-2.4) Total Bilirubin 0.3 MG/DL (0.2-1.0) Aspartate Amino Transf (AST/SGOT) 28 U/L (15-37) Alanine Aminotransferase (ALT/SGPT) 70 U/L (12-78) Alkaline Phosphatase 107 U/L (46-116) C-Reactive Protein, Quantitative 1.5 mg/dL (0.00-0.90) H Total Protein 7.0 G/DL (6.4-8.2) Albumin 3.8 G/DL (3.4-5.0) Globulin 3.2 g/dL Albumin/Globulin Ratio 1.2 (1.0-2.7) Valproic Acid (Depakene) Level 27 MCG/ML (50-100) L White Blood Count 7.3 K/UL (4.8-10.8) Red Blood Count 5.27 M/UL (4.70-6.10) Hemoglobin 15.4 G/DL (14.2-18.0) Hematocrit 50.2 % (42.0-52.0) Mean Corpuscular Volume 95 FL (80-99) Mean Corpuscular Hemoglobin 29.2 PG (27.0-31.0) Mean Corpuscular Hemoglobin Concent 30.7 G/DL (32.0-36.0) L Red Cell Distribution Width 12.9 % (11.6-14.8) Platelet Count 218 K/UL (150-450) Mean Platelet Volume 7.4 FL (6.5-10.1) Neutrophils (%) (Auto) 66.0 % (45.0-75.0) Lymphocytes (%) (Auto) 21.7 % (20.0-45.0) Monocytes (%) (Auto) 11.2 % (1.0-10.0) H Eosinophils (%) (Auto) 0.2 % (0.0-3.0) Basophils (%) (Auto) 1.0 % (0.0-2.0) Erythrocyte Sedimentation Rate 109 MM/HR (0-15) H Neurologic Exam Objective PHYSICAL EXAMINATION: GENERAL: He is a well-developed, well-nourished, obese, gentleman, in no acute distress. HEAD: Normocephalic and atraumatic. EENT: Examination benign. NECK: No neck rigidity was observed. NEUROLOGICAL EXAMINATION: MENTAL STATUS EXAMINATION: He was awake and alert. He was oriented to person, place, and time. He was able to recall 3/3 words immediately after 1 minute and after 3 minutes on the second trial. He was able to remember Presidents, Trump and Obama, but could not remember Presidents prior to that. His mathematical skills were fairly good. His visuospatial function was preserved. SPEECH: He had no dysarthria. LANGUAGE: He had no aphasia. CRANIAL NERVE EXAMINATION: II: The visual ryder were intact on confrontation testing. III, IV & : The external ocular movements were full and the pupils 3 mm in diameter, equal, round, regular, and reactive to light. V: He had normal facial sensations, and the temporales, masseters, and pterygoids functioned normally. VII: He had normal facial expressions and no facial asymmetry. VIII: He was able to hear well bilaterally and had no nystagmus. IX: The palate moved symmetrically on phonation. X: He had no hoarseness of voice. XI: The sternocleidomastoids and trapezii functioned normally. XII: The tongue was in the midline without any fasciculations or atrophy MOTOR SYSTEM: The tone was normal in all four extremities. Examination of muscle mass revealed no focal wasting. Examination of power revealed G 5/5 power in all muscle groups. SENSORY EXAMINATION: He had intact sensations to pinprick, light touch, and graphesthesia. COORDINATION: He performed well on [id number] testing. REFLEXES: Trace+ and bilaterally symmetrical at the biceps, triceps, brachioradialis, and knees, 0 at both ankles. The plantar responses were flexor bilaterally. STANCE: He stood up independently. GAIT: He walked well independently. Impression/Recommendations Diagnostic Impression 1. Mr. Eduardo Haley is a 23-year-old, right-handed, gentleman, with past history of autism spectrum disorder and a seizure disorder who was hospitalized for breakthrough seizures. 2. He feels well today. He has had no further seizures. In the early hours of today he was masturbating outside his room. Dr. Mckeon talked him into stopping the unacceptable behavior. He denies any new neurologic symptoms. He tolerated the increased dose of Keppra well. He is eager to go home. 3. On neurological examination, at this time, he does have mild problems with recent and remote memory, and globally diminished deep tendon reflexes. 4. CT scan of the brain without contrast is benign. 5. By report, the patient has had an MRI scan of the brain performed in the past , which was reportedly benign. 6. The EEG performed on 01/12/19 was normal in the awake, drowsy and sleep II states 7. His latest laboratory data on my initial evaluation revealed a relatively normal CBC. The ABG revealed a pH of 7.27, pCO2 of 54.8, pO2 of 100.3. The chemistry panel revealed a glucose elevated at 147. The Hemoglobin A1c was at 5.8. The urine toxicology screen that was negative and urinalysis that revealed 10-15 red blood cells and 0-2 white blood cells per high-power field. 8. Further laboratory tests revealed a normal B12, normal folate, a non- reactive RPR and TSH that was low at 0.293. 9. 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 The most likely etiology for the breakthrough seizures is that the patient was not on an adequate dose of antiseizure medicine to control the seizures as he does weigh 166 kilos. Recommendations 1. The patient was given an explanation of the above-mentioned findings. 2. Continue Keppra 2.5 G q.12 hours. 3. An attempt should be made to confirm with his mother that he did have an MRI of the brain in the past and the MRI was in fact normal. If not, then a repeat MRI should be performed in the near future. 4. Follow-up with neurologist in near future. Tarun Spann M.D., M.S.P.H. Tarun Spann MD Jan 13, 2019 13:32
[2019-01-13] MEDS ORDERED: RISPERDAL2 MG ORAL (14:15)
[2019-01-13] MEDS ORDERED: TOPAMAX100 MG ORAL (14:15)
[2019-01-13] MEDS ORDERED: KEPPRA500 MG ORAL (14:15)
[2019-01-13] MEDS ORDERED: ABILIFY10 MG ORAL (14:15)
--- NOTE | 2019-01-13 14:16 | Discharge Summary ---
Discharge Summary Hospital Course Date of Admission Jan 12, 2019 at 02:07 Date of Discharge Admitting Diagnosis SEIZURE HPI Eduardo Haley is a 23 year old male who was admitted on Jan 12, 2019 at 02:07 for Seizure Hospital Course Last 24 Hour Vital Signs Date Time Temp Pulse Resp B/P (MAP) Pulse Ox O2 Delivery O2 Flow Rate FiO2 01/13/19 12:00 2.0 01/13/19 12:00 98.1 70 24 124/60 (81) 93 01/13/19 12:00 Nasal Cannula 2.0 01/13/19 11:35 87 01/13/19 08:00 2.0 01/13/19 08:00 Nasal Cannula 2.0 01/13/19 08:00 98.0 95 20 141/88 (105) 93 01/13/19 07:45 98 01/13/19 04:00 Nasal Cannula 2.0 01/13/19 04:00 2.0 01/13/19 04:00 98.0 93 20 102/57 (72) 97 01/13/19 03:37 94 01/13/19 00:00 98.7 90 20 130/69 (89) 96 01/13/19 00:00 Nasal Cannula 2.0 01/13/19 00:00 2.0 01/12/19 23:36 111 01/12/19 20:00 2.0 01/12/19 20:00 Nasal Cannula 2.0 01/12/19 20:00 98.9 103 19 124/99 (107) 97 01/12/19 19:38 103 01/12/19 16:00 2.0 01/12/19 16:00 Bi-pap 01/12/19 16:00 97.5 97 20 122/69 (86) 97 01/12/19 16:00 100 GENERAL: The patient is awake, responsive, not in acute distress. HEAD AND NECK: Pupils are equal and reactive to light. Extraocular movements intact. Neck was supple. No JVD. LUNGS: Good air entry. No wheezing or rales. HEART: S1, S2. Regular rhythm. No Murmur or gallops. ABDOMEN: Soft, nondistended, nontender, morbidly obese. EXTREMITIES: No cyanosis, clubbing, or edema. NEUROLOGIC: Cranial nerves II through XII grossly intact. Motor is 5/5 in all extremities. Gait is not assessed due to the patient's status. RECTAL: Refused and deferred. GENITOURINARY: Refused and deferred. PSYCHIATRIC: Mood and affect is intact. Discharge Discharge Disposition Patient was discharged to Sathya Mckeon MD Jan 13, 2019 14:16
[2019-01-13] MEDS ORDERED: NS 275ml ONE (14:49)
--- NOTE | 2019-01-13 14:55 | NUR ---
NURSE NOTES: Discharged patient in stable condition, wheeled out via WC by arlen, accompanied by mother Silvia Green. IV and monitoring tech removed prior to discharge. Patient is aaox4; discharge instructions and prescription given to patient; acknowledged and verbalized understanding. Addendum: 01/13/19 at 1502 by Tierra Blackmon RN All patient belongings given to patient.
--- NOTE | 2019-01-13 19:30 | Electroencephalogram ---
REQUESTING PHYSICIAN: Sathya Mckeon M.D. READING PHYSICIAN: Tarun Spann M.D. DATE OF TRACIN01/12/2019 HISTORY: This EEG was performed on a 23-year-old gentleman with a history of autism spectrum disorder and seizures. The purpose of this EEG was to better delineate the type of seizure disorder. TECHNICAL NOTE: This EEG was performed on [employer] with electrodes placed on the scalp according to the International 10-20 system. [id number] and zjbto-[id number]-[id number] montages were used. The EEG was technically satisfactory and was performed predominantly while the patient was awake or drowsy, with brief periods of stage II sleep. OBSERVATIONS: In the best awake state, the background activity consisted of 9-10 Hz posteriorly predominant well-developed alpha waveforms, which attenuated on eye opening. Drowsiness was characterized by dissolution of the alpha rhythm and the appearance of slow frequencies in the 6-7 Hz theta range. Stage II sleep was characterized by further slowing of the background in the delta and theta range, the presence of vertex waves, and a few interspersed 14 Hz sleep spindles. No focal abnormalities or epileptiform discharges were seen. IMPRESSION: Normal awake, drowsy, and stage II sleep EEG. COMMENT: A normal EEG does not rule out a seizure disorder. Tarun Spann M.D., M.S.P.H. DR: PETERSON JOB#: [id number] NACHO
[2019-01-13] MEDS ORDERED: Depakote 125mg Sprinkles ORAL SCH (21:00)
--- NOTE | 2019-01-13 22:15 | Discharge Summary ---
DATE OF ADMISSION: 01/12/2019 DATE OF DISCHARGE: 01/13/2019 HOSPITAL COURSE: This is a 23-year-old gentleman with past medical history significant for psychosis, morbid obesity, and seizure disorder, who was presented to the hospital after was noted witness of seizure. Subsequently, the patient was admitted to the hospital with uncontrolled seizure. Throughout the hospital course, the patient was consulted with Dr. Tarun Spann from Neurology and subsequently, the patient had an EEG done, was unremarkable and the patient was discharged home today to be followed as outpatient with the primary doctor. FINAL DIAGNOSES: 1. Uncontrolled seizure. 2. Psychiatric disorder, unspecified. 3. Morbid obesity. 4. Presumably obstructive sleep apnea. MEDICATION AT DISCHARGE: Continue discharge medication list. ACTIVITY: As tolerated. DIET: Low-carb diet. FOLLOWUP: The patient was advised to follow up with the primary doctor within one week. Sathya Mckeon M.D. DR: ALEX JOB#: [id number] CC:
--- NOTE | 2019-01-14 12:45 | NUR ---
CASE MANAGEMENT: CM review and clinical information (face sheet/ ER MD notes/ H&P) faxed to JOSUE SANTANA @ [phone]
== END 2019-01-13 14:50 | disposition home or self-care (01) | DRG 53 ==
LOC: EDBD 23:28 → EMR 01-12 02:00 → 2W 01-12 02:07 → EDBEDREQ 01-12 03:15
PROC: 5A09357 Assistance with Respiratory Ventilation, Less than 24 Consecutive Hours, Continuous Positive Airway Pressure (ICD-10-PCS; principal; 2019-01-12)
DX: G40.901 Epilepsy, unspecified, not intractable, with status epilepticus (principal); J96.01 Acute respiratory failure with hypoxia; E66.01 Morbid (severe) obesity due to excess calories; Z68.44 Body mass index [BMI] 60.0-69.9, adult; G47.33 Obstructive sleep apnea (adult) (pediatric); F29 Unspecified psychosis not due to a substance or known physiological condition
CPT/HCPCS: 36415; 36600; 70450; 71045; 80048; 80053; 80164; 80299; 80307; 80329; 81003; 82306; 82607; 82746; 82803; 83036; 83735; 83880; 84100; 84443; 85025; 85651; 86140; 86592; 93005; 93306; 93970; 94660; 94664; 95819; 96361; 96372; 96374; 96375; 96376; 99291; J2405

== ENCOUNTER 2019-03-14 20:58 | Emergency (ER) | payer MEDICAID ==
[~2019-03-14] VITALS: Ht 185.4 cm; Wt 136.1 kg
[~2019-03-14 20:58] MED LIST: ABILIFY10 MG ORAL; KEPPRA500 MG ORAL; RISPERDAL2 MG ORAL; TOPAMAX100 MG ORAL
[2019-03-14] MEDS ORDERED: Tetanus/Diptheria/Pertussis IM ONE (21:30)
[2019-03-14 21:40] VITALS: BP 123/81
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
== END 2019-03-14 21:40 | disposition left against medical advice (07) ==
LOC: EDBD 20:58 → EMR 21:19
DX: S61.217A Laceration without foreign body of left little finger without damage to nail, initial encounter (principal); F32.9 Major depressive disorder, single episode, unspecified; F91.9 Conduct disorder, unspecified; Z23 Encounter for immunization; W25.XXXA Contact with sharp glass, initial encounter; Y92.9 Unspecified place or not applicable
CPT/HCPCS: 90471; 90715; Z7502; 99285